=== PATIENT | female | born 1975 | race Two or more races ===

== ENCOUNTER 2019-07-03 23:24 | Emergency (ER) | payer BC ==
[~2019-07-03] VITALS: Ht 162.6 cm; Wt 77.1 kg
[~2019-07-03 23:24] MED LIST: AMOX-263 PO; AZIT250T8 PO
[2019-07-04 00:14] VITALS: BP 119/72
== END 2019-07-04 06:09 | disposition left against medical advice (07) ==
LOC: EDBD 23:24 → ER 23:26
DX: M54.5 Low back pain (principal)
CPT/HCPCS: 72100